=== PATIENT | male | born 1975 | race American Indian/Alaskan Native ===

== ENCOUNTER 2019-01-15 19:32 | Emergency (ER) | payer OTHER ==
[2019-01-15 21:02] LABS: Hematocrit 35.4 % (35.5-45.6); Hemoglobin 12.2 gm/dl (11.8-15.2); Mean Corpuscular HGB Conc 35 % (32-34); Mean Corpuscular Volume 79 fl (84-94); Platelet Count 259 K/mm3 (140-440); Red Blood Count 4.48 M/mm3 (3.65-5.03); Red Cell Distribution Width 15.7 % (13.2-15.2)
[2019-01-15 21:23] LABS: Alanine Aminotransferase 23 units/L (7-56); Albumin 4.2 g/dL (3.9-5); BUN/Creatinine Ratio 11; Blood Urea Nitrogen 10 mg/dL (9-20); Calcium 8.7 mg/dL (8.4-10.2); Hemolysis Index 13
[2019-01-15] MEDS ORDERED: DILAUDID IV ONE (21:49)
[2019-01-15] MEDS ORDERED: NACL 0.9% 1000 ML 1,000 ML IV ONE (21:49)
[2019-01-15] MEDS ORDERED: TORADOL IV ONE (21:49)
--- NOTE | 2019-01-15 21:51 | Emergency Department Report ---
ED General Adult HPI - General Chief complaint: Sickle Cell Crisis Stated complaint: SICKLE CELL,CHEST PAIN Time Seen by Provider: 01/15/19 21:40 Source: patient, family Mode of arrival: Wheelchair Limitations: No Limitations - History of Present Illness Initial comments: 43-year-old male presents to ED with complaint of sickle cell crisis. 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 Reports currently reports pain to bilateral shoulders and left leg. Patient was seen earlier today at [facility], states at that time he was having chest and back pain which has now resolved -: This morning Location: upper extremity, lower extremity Quality: aching Consistency: constant Improves with: none Worsens with: none Associated Symptoms: denies: chest pain, fever/chills, shortness of breath - Related Data Allergies Allergy/AdvReac Type Severity Reaction Status Date / Time No Known Allergies Allergy Verified 01/15/19 20:19 ED Review of Systems ROS: Stated complaint: SICKLE CELL,CHEST PAIN Other details as noted in HPI Comment: All other systems reviewed and negative Constitutional: denies: chills, fever Respiratory: denies: cough, shortness of breath Cardiovascular: denies: chest pain Gastrointestinal: denies: abdominal pain, nausea, vomiting Musculoskeletal: as per HPI ED Past Medical Hx - Past Medical History Previous Medical History?: Yes Hx Sickle Cell Disease: Yes - Surgical History Past Surgical History?: No - Social History Smoking Status: Never Smoker Substance Use Type: Alcohol ED Physical Exam - General Limitations: No Limitations General appearance: alert, in no apparent distress - Head Head exam: Present: atraumatic, normocephalic - ENT ENT exam: Present: mucous membranes moist - Neck Neck exam: Present: normal inspection - Respiratory Respiratory exam: Present: normal lung sounds bilaterally. Absent: respiratory distress - Cardiovascular Cardiovascular Exam: Present: regular rate, normal rhythm - GI/Abdominal GI/Abdominal exam: Absent: distended - Extremities Exam Extremities exam: Present: full ROM - Neurological Exam Neurological exam: Present: alert, oriented X3 - Psychiatric Psychiatric exam: Present: normal affect, normal mood - Skin Skin exam: Present: warm, dry, intact, normal color. Absent: rash ED Course Vital Signs 01/15/19 01/15/19 19:44 20:19 Temperature 98.2 F 98.2 F Pulse Rate 61 62 Respiratory 18 16 Rate Blood Pressure 139/90 139/90 O2 Sat by Pulse 99 96 Oximetry - Reevaluation(s) Reevaluation #1: 01/15/19 23:06 Pt reports improvement of pain. Labs unremarkable. Will d/c at this time. Pt has prescription for norco from [place] that he has not yet filled. Advised that I will not be giving another rx since he already has one. Pt agreeable. ED Medical Decision Making - Lab Data Result diagrams: 01/15/19 20:31 01/15/19 20:31 - EKG Data -: EKG Interpreted by Me EKG shows normal: sinus rhythm, axis, intervals, QRS complexes Rate: normal - EKG Data Interpretation: nonspecific ST-T wave [place] Critical care attestation.: If time is entered above; I have spent that time in minutes in the direct care of this critically ill patient, excluding procedure time. ED Disposition Clinical Impression: Sickle cell anemia with pain Disposition: DC-01 TO HOME OR SELFCARE Is pt being admited?: No Condition: Stable Instructions: Sickle Cell Crisis (ED) Referrals: CAMILO WILLSON DO [Staff Physician] - 3-5 Days Time of Disposition: 23:07
[2019-01-15 22:24] LABS: Basophils % (Manual) 0 % (0.0-1.8); Eosinophils % (Manual) 0 % (0.0-4.3); Total Cells Counted 100
[2019-01-15 22:25] LABS: Anisocytosis 1+; Sickle Cells 1+; Target Cells 1+
[2019-01-15 22:26] LABS: Giant Platelets 1+; Large Platelets Few; Platelet Estimate Consistent w Auto; Poikilocytosis 2+
[2019-01-15 23:21] VITALS: BP 127/92
[2019-01-15 23:51] LABS: Bilirubin,Urine NEG (Negative); Blood,Urine NEG (Negative); Color,Urine Yellow (Yellow); Protein,Urine <15 mg/dL mg/dL (Negative); RBC,Urine < 1.0 /HPF (0.0-6.0); Urobilinogen,Urine < 2.0 mg/dL (<2.0)
== END 2019-01-15 23:33 | disposition home or self-care (01) ==
LOC: ED 19:32
DX: D57.1 Sickle-cell disease without crisis (principal)
CPT/HCPCS: 36415; 80053; 81001; 85007; 85025; 85045; 93005; 93010; 96374; 96375; 99283; J1170; J1885; J7030; 96361

== ENCOUNTER 2019-02-03 15:57 | Outpatient (CLI) | payer OTHER ==
--- NOTE | 2019-02-03 17:31 | XRay Report ---
PROCEDURE: XR HIPS BILAT 2V W/PELVIS HISTORY: JOINT PAIN FINDINGS: AP view of the pelvis was acquired as well as AP and lateral views of the right hip and lef t hip. These images demonstrate no fracture of the left hip or right hip. Hip joint space appears preserved bilaterally. IMPRESSION: No fracture is seen in the left hip or right hip This document is electronically signed by Dick Bustillo MD., February 03 2019 05:29:08 PM ET
--- NOTE | 2019-02-03 17:32 | XRay Report ---
PROCEDURE: XR SHOULDER BILAT 2+V HISTORY: JOINT PAIN FINDINGS: AP views of the right shoulder were acquired in internal and external rotation is as well as scapular Y views. On the right, no fracture is seen. There is advanced glenohumeral osteoarthritis with loss of joint s pace and inferior osteophyte formation from the humeral head. On the left, no fracture is seen. There is moderate glenohumeral osteoarthritis. IMPRESSION: No fracture is seen in either shoulder Bilateral glenohumeral osteoarthritis, right worse than left This document is electronically signed by Dick Bustillo MD., February 03 2019 05:30:24 PM ET
[2019-02-04] MEDS ORDERED: ASPIRIN ONE (19:20)
[2019-02-04] MEDS ORDERED: NORCO 5/325 ONE (19:20)
== END 2019-02-03 15:58 | disposition home or self-care (01) ==
LOC: XRAY 15:57
PROVIDERS: ATTEND Internal Medicine Hematology & Oncology
DX: M19.012 Primary osteoarthritis, left shoulder (principal); M19.011 Primary osteoarthritis, right shoulder; M25.551 Pain in right hip; M25.552 Pain in left hip
CPT/HCPCS: 73521